=== PATIENT | female | born 1995 | race Caucasian/White ===

== ENCOUNTER → 2018-12-06 | Outpatient (CLI) | payer OTHER ==
--- NOTE | 2018-12-06 11:54 | RAD ---
Two-view chest dated 12/06/2018. No comparison available. Clinical indication: Shortness of breath. FINDINGS: PA and lateral views obtained. Heart and mediastinal contours within normal limits. Lungs are clear without focal consolidation. Vascular interstitium within normal limits. No pleural effusion or pneumothorax. IMPRESSION: No acute radiographic abnormality. Electronically signed by: Yovanny Moore MD (12/06/2018 11:51 AM) [id number]
== END | disposition home or self-care (01) ==
LOC: RAD 11:25
PROVIDERS: ATTEND Internal Medicine
DX: R06.02 Shortness of breath (principal)
CPT/HCPCS: 71046

== ENCOUNTER → 2019-01-27 | Outpatient (CLI) | payer OTHER ==
[2019-01-27 15:53] LABS: BASO # 0.1 x10^3/uL (0.0-0.2); BASO % 1 % (0-3); EOS # 0.3 x10^3/uL (0.0-0.7); EOS % 3 % (0-3); HEMATOCRIT 39.9 % (36.0-47.0); HEMOGLOBIN 13.4 g/dL (12.0-15.5); LYMPH # 2.2 x10^3/uL (1.0-4.8); LYMPH % 20 % (24-48); MEAN CORPUSCULAR HEMOGLOBIN 30 pg (25-35); MEAN CORPUSCULAR HGB CONC 34 g/dL (31-37); MEAN CORPUSCULAR VOLUME 89 fL (79-100); MONO # 0.8 x10^3/uL (0.0-1.1); MONO % 8 % (0-9); NEUT # 7.7 x10^3uL (1.8-7.7); NEUT % 70 % (31-73); PLATELET COUNT 318 x10^3/uL (140-400); RED CELL DISTRIBUTION WIDTH 15.5 % (11.5-14.5)
[2019-01-30 03:12] LABS: ASPERGILLUS <0.10 kU/L (Class 0); IMMUNOGLUBULIN E 69 IU/mL (6-495)
== END | disposition home or self-care (01) ==
LOC: LAB 15:28
PROVIDERS: ATTEND Internal Medicine Pulmonary Disease
DX: J45.909 Unspecified asthma, uncomplicated (principal)
CPT/HCPCS: 36415; 82784; 85025; 86001

== ENCOUNTER 2020-09-05 07:59 | Emergency (ER) | payer OTHER ==
[~2020-09-05] VITALS: Ht 160 cm; Wt 62.0 kg
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
[2020-09-05] MEDS ORDERED: ORPH100T PO (10:01)
[2020-09-05 10:09] VITALS: BP 136/83
== END 2020-09-05 10:09 | disposition home or self-care (01) ==
LOC: ER 07:59
DX: S16.1XXA Strain of muscle, fascia and tendon at neck level, initial encounter (principal); R51.9 Headache, unspecified; V49.9XXA Car occupant (driver) (passenger) injured in unspecified traffic accident, initial encounter; Y93.89 Activity, other specified; Y92.413 State road as the place of occurrence of the external cause; Y99.8 Other external cause status
CPT/HCPCS: 70450; 72125; 81025; 99285

== ENCOUNTER 2021-07-17 20:08 | Emergency (ER) | payer OTHER ==
[~2021-07-17] VITALS: Ht 160 cm; Wt 71.0 kg
[~2021-07-17 20:08] MED LIST: ORPH100T PO
--- NOTE | 2021-07-17 20:57 | PHYS DOC ---
Past Medical History Past Medical History: No Pertinent History Past Surgical History: No Surgical History Smoking Status: Never Smoker Alcohol Use: Rarely Drug Use: None General Adult HPI: HPI: Patient is a 26 year old female who presents with 5-day history of cough, wheezing, shortness of breath. She reports that she is coughing up yellow sputum. She denies fevers or chills. She denies nausea or vomiting. She denies chest pain. 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 She has had 1 Covid vaccine. She had Covid infection in February of this year. She reports being vaccinated against influenza. She denies abdominal pain, nausea or vomiting. LMP within the last month. She reports that she is using her rescue inhalers, but she is out of her nebulized Xopenex, also out of her Advair Diskus. She began taking 50 mg prednisone p.o. daily 3 days ago, and she has 2 doses left. She has not been able to get in to see her primary care doctor yet. Review of Systems: Review of Systems: Constitutional: Denies fever or chills. [] HENT: Congestion, denies sore Respiratory: Cough, wheezing, dyspnea Cardiovascular: Denies chest pain or edema. [] GI: Denies abdominal pain, nausea, vomiting Neurologic: Denies weakness Psychiatric: Denies depression or anxiety. [] Heart Score: C/O Chest Pain: No Risk Factors: Risk Factors: DM, Current or recent (<one month) smoker, HTN, HLP, family history of CAD, obesity. Risk Scores: Score 0 - 3: 2.5% MACE over next 6 weeks - Discharge Home Score 4 - 6: 20.3% MACE over next 6 weeks - Admit for Clinical Observation Score 7 - 10: 72.7% MACE over next 6 weeks - Early Invasive Strategies Allergies: Allergies: Allergies Coded Allergies Type Severity Reaction Last Updated Verified No Known Drug Allergies 09/05/20 No Physical Exam: PE: Constitutional: Well developed, well nourished, no acute distress, non-toxic appearance. [] HENT: Normocephalic, atraumatic, oropharynx is patent and clear, no exudate or erythema, mucous membranes are moist. TMs are clear bilaterally. Poor dentition Eyes: Sclera are clear and anicteric. Neck: Trachea is midline, no JVD, neck is supple Cardiovascular: Tachycardic, regular, +2 radial pulses bilaterally, warm and well perfused, no peripheral edema Lungs & Thorax: Frequent cough noted. Scattered bilateral mild rhonchi, clear with coughing. No wheezing. No stridor. No tachypnea. No retractions. Speaks in full and clear sentences. No stridor. No evidence of any distress Abdomen: Abdomen is soft, nondistended, nontender to palpation Skin: Warm, dry, no erythema, no rash. [] Back: No tenderness, no CVA tenderness. [] Extremities: No tenderness, no cyanosis, no clubbing, ROM intact, no edema. No calf tenderness. Neurologic: She is awake, alert, conversant, ambulatory Psychologic: Affect normal, judgement normal, mood normal. [] EKG: EKG: [] Radiology/Procedures: Radiology/Procedures: [] Course & Med Decision Making: Course & Med Decision Making Pertinent Labs and Imaging studies reviewed. (See chart for details) I discussed the findings, differential diagnosis and plan of care with the patient. She is given Tessalon Perles and a DuoNeb treatment. She feels much better. She is positive for influenza A. Chest x-ray is unremarkable. There is no indication for further invasive exams, imaging or admission at this time. I did give her prescription for her Xopenex nebulizer elution as well as Advair Diskus, and Tessalon Perles. She should continue taking the prednisone until gone. She has plenty of her rescue inhalers with refills. I told her to contact her primary care doctor for follow-up. Strict return precautions are given. She is given a work excuse for tonight and tomorrow. Miryam Disclaimer: Miryam Disclaimer: This electronic medical record was generated, in whole or in part, using a voice recognition dictation system. Departure Departure Impression: Primary Impression: Acute asthma exacerbation Qualified Codes: J45.901 - Unspecified asthma with (acute) exacerbation Additional Impression: Influenza A Disposition: HOME / SELF CARE / HOMELESS Condition: STABLE Referrals: DEWAYNE WHITING MD (PCP) Patient Instructions: Asthma, Adult, Influenza A (H1N1) Additional Instructions: Take the prescription medication as directed. Continue taking your prednisone, finish the full course. Take this with food so it does not upset your stomach. Use your breathing treatments as needed/as directed. Return to the ER for severe chest pain, refractory or uncontrolled shortness of breath or wheezing, vomiting, dehydration, weakness or any other concerns. You may take Tylenol an d/or ibuprofen for fever. Stay well-hydrated, get plenty of rest. You should not return to work for your next scheduled shifts. Follow-up with your primary care physician. Scripts Fluticasone/Salmeterol (ADVAIR 500-50 DISKUS) 1 Each Disk.w.dev 1 PUFF IH BID for asthma, #1 INHALER 0 Refills Prov: SUSSY HERRERA DO 07/17/21 Levalbuterol HCl (Xopenex) 1.25 Mg/3 Ml Vial.neb 1 VIAL NEB TID for shortness of breath, #60 VIAL 0 Refills Prov: SUSSY HERRERA DO 07/17/21 Benzonatate (BENZONATATE) 200 Mg Capsule 1 CAP PO PRN TID PRN for cough, #20 CAP 0 Refills Prov: SUSSY HERRERA DO 07/17/21 SUSSY HERRERA DO Jul 17, 2021 20:57
[2021-07-17] MEDS ORDERED: BENZONATATE 100 MG CAPSULE. PO ONE (21:15)
[2021-07-17] MEDS ORDERED: IPRATRPIUM/ALBUTEROL 0.5/2.5MG 3 ML NEBU. NEB ONE (21:15)
[2021-07-17 21:58] LABS: INFLUENZA B PATIENT NEGATIVE (NEGATIVE)
[2021-07-17 22:00] VITALS: BP 132/72
[2021-07-17 22:02] LABS: INFLUENZA A PATIENT POSITIVE (NEGATIVE)
[2021-07-17] MEDS ORDERED: BENZ200C47 PO (22:13)
[2021-07-17] MEDS ORDERED: LEVA1.2527 NEB (22:13)
[2021-07-17] MEDS ORDERED: FLUT1DIS5 IH (22:13)
--- NOTE | 2021-07-18 07:21 | RAD ---
PA and lateral chest x-rays HISTORY: Cough. COMPARISON: Chest x-ray December 06, 2018. FINDINGS: There is mild elevation of the left diaphragm likely due to prominent gaseous distended bow el loops underlying the diaphragm new from the prior study. Heart size is normal. The mediastinal shaniqua houette is normal. No pneumothorax, pulmonary opacities or pleural effusions. IMPRESSION: No acute process. Electronically signed by: Kareem Alston MD (07/18/2021 7:19 AM) [facility]
--- NOTE | 2021-07-18 17:48 | NUR ---
IP: Informed pt of negative covid test. Pt verbalized understanding.
== END 2021-07-17 22:31 | disposition home or self-care (01) ==
LOC: ER 20:08
DX: J45.901 Unspecified asthma with (acute) exacerbation (principal); J10.1 Influenza due to other identified influenza virus with other respiratory manifestations; Z20.822 Contact with and (suspected) exposure to COVID-19
CPT/HCPCS: 71046; 87426; 87804; 94640; 99284; U0003; U0005

== ENCOUNTER 2021-08-07 04:34 | Emergency (ER) | payer OTHER ==
[~2021-08-07] VITALS: Ht 160 cm; Wt 63.6 kg
[2021-08-07 04:34] VITALS: BP 133/80
[~2021-08-07 04:34] MED LIST changes: +BENZ200C47 PO; +FLUT1DIS5 IH; +LEVA1.2527 NEB
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
[2021-08-07] MEDS ORDERED: IBUPROFEN 200 MG TABLET. PO ONE (05:30)
[2021-08-07] MEDS ORDERED: ACETAMINOPHEN 500 MG TABLET PO ONE (05:30)
--- NOTE | 2021-08-07 05:43 | RAD ---
Three-view left wrist dated 08/07/2021. No comparison available. CLINICAL INDICATION: Pain. FINDINGS: 3 views left wrist show normal bony alignment. No displaced fracture. No periostitis or bone destruct ion. No acute osseous or articular abnormality. IMPRESSION: No acute radiographic abnormality. Electronically signed by: Yovanny Moore MD (08/07/2021 5:39 AM) [facility]
== END 2021-08-07 06:08 | disposition home or self-care (01) ==
LOC: ER 04:34
DX: M25.532 Pain in left wrist (principal); J45.909 Unspecified asthma, uncomplicated; G89.11 Acute pain due to trauma; Y08.89XA Assault by other specified means, initial encounter; Y93.89 Activity, other specified; Y92.89 Other specified places as the place of occurrence of the external cause; Y99.8 Other external cause status
CPT/HCPCS: 73120; 99283